=== PATIENT | female | born 1990 | race Asian ===

== ENCOUNTER 2016-06-22 13:56 | Emergency (ER) | payer OTHER ==
[~2016-06-22] VITALS: Ht 152.4 cm; Wt 81.6 kg
[2016-06-22 14:40] LABS: PLATELET COUNT 298 K/uL (152-353)
[2016-06-22 14:50] LABS: POTASSIUM 3.8 mmol/L (3.6-5.2); SODIUM 140 mmol/L (136-145)
== END 2016-06-22 16:36 | disposition home or self-care (01) ==
LOC: ED 13:56
DX: R51 Headache (principal); I10 Essential (primary) hypertension
CPT/HCPCS: 36415; 80048; 85027; 96372; 99283; J1885